=== PATIENT | female | born 2000 | race Caucasian/White ===

== ENCOUNTER 2018-07-03 13:02 | Emergency (ER) | payer BC ==
--- NOTE | 2018-07-03 13:34 | EDPHY ---
General Time Seen by Provider: 07/03/18 13:18 Narrative: CLINICAL IMPRESSION: Allergic reaction, urticaria ASSESSMENT/PLAN: Patient is a 18-year-old female with no significant medical history, who presents to the emergency department with bilateral hand pruritic rash, swelling and left lower lip swelling. The patient is well appearing, no acute distress and not toxic-appearing. She is afebrile and in no acute distress. Physical examination reveals no evidence of other angioedema; bilateral hands with no appreciable edema however maculopapular rash noticed. Her lungs were clear to auscultation without wheeze, oxygen saturation was 97% on room air without evidence of hypoxia. She was normotensive and not tachycardic. Patient has had no recent medication use, do not suspect drug reaction. Patient has had no fever or URI symptoms, there are no signs of meningismus and I do not suspect meningococcemia. There were no clinical findings to suggest anaphylaxis, SJS/TENS, varicella virus, measles, roseola, rubella or erythema infectiosum. Query mild allergic reaction, unknown precipitant. The patient was given Benadryl, Pepcid, Solu-Medrol and IV fluids in the emergency department with near resolution of her symptoms. She was observed for a period of time, on repeat examination prior to discharge her vital signs remained stable, she had complete resolution of her rash and reports she is feeling much better. She is a student at the [employer], her PCP is in [place]. I will provided local referral for her to follow up with this week. Strict return precautions discussed- patient is to return to the emergency department should for worsening rash, oral swelling, oral lesions, difficulty breathing, skin sloughing, lethargy, altered mentation or for any other concerning symptom. Mother verbalizes understanding and she is in agreement with this plan. DIFFERENTIAL DX: Differential diagnosis including but not limited to and in no particular order anaphylaxis, SJS/TENS, urticarial reaction, dermatitis, varicella, measles, mumps, rubella, erythema infectiosum ED COURSE: 1300: Case discussed with Dr. Riley. 1441: On repeat examination the patient reports she is feeling much better. She denies any sensation of lip swelling. Her rash has resolved, she reports subjective sensation of swollen hands. Her vital signs have remained within normal limits. CHIEF COMPLAINT: Bilateral hand rash, lower lip swelling HPI: Patient is a 18-year-old female with no significant medical history who presents to the Emergency Department with sudden-onset bilateral hand itching, redness, swelling and left lower lip swelling. Patient reports at approximately 10:00 a.m. This morning she felt that her hands and feet were very itchy. She noticed a rash on her hands and felt that her hands and feet looked mildly swollen. Her feet have since resolved however her hand continued to itch and she is now experiencing left lower lip swelling. She denies any new medications, she has no history of anaphylaxis or allergic reactions. She denies any new soaps, detergents, lotions or other topical products. No known food allergies. She denies any fever or recent illness. She has had no neck stiffness, chest pain or shortness of breath. She denies any throat tightness, pain or difficulty swallowing. She denies any nausea, vomiting or abdominal pain. PMH: Denies Pertinent Past Surgical History: Denies Family History: Noncontributory Social History: Occasional alcohol, denies marijuana or other illicit drug use , denies smoking REVIEW OF SYSTEMS: All other systems negative Constitutional: No fever, no chills, appetite change. Eyes: No discharge, vision change ENT: No sore throat, congestion, ear pain. Cardiovascular: No chest pain, no palpitations. Respiratory: No cough, no shortness of breath. Gastrointestinal: No abdominal pain, no vomiting, diarrhea. Genitourinary: No hematuria, dysuria, flank pain, pelvic pain Musculoskeletal: No back pain, joint swelling, joint pain, myalgias. Skin: Rash. Neurological: No headache, dizziness, weakness. PHYSICAL EXAM: General Appearance: Well-appearing, no acute distress. HENT: Normocephalic, atraumatic. Bilateral external ears are normal. Bilateral tympanic membranes are normal with pearly leal reflex. Nares are clear, mucosa is pink. There is no tonsillar enlargement or exudate. There is no appreciable facial edema, oropharynx is clear without evidence of angioedema. The posterior pharynx is clear. There is no tonsillar enlargement or exudate, no uvular enlargement. Her phonation is normal, there is no stridor. The dentition is normal. Eyes: PERRLA, no acute vision change, nystagmus, swelling, discharge, pain or photosensitivity. Conjunctiva pink, no pallor or injection. Neck: Supple, nontender, no lymphadenopathy, no midline pain, FROM, no meningismus. Respiratory: There are no retractions, lungs are clear to auscultation. Cardiac: Regular rate and rhythm, no murmurs or gallops. Gastrointestinal: Abdomen is soft, nontender, bowel sounds normal, no masses/ hernia, no rigidity, guarding or focal peritoneal findings. Neurological: Alert and oriented x 3, CN 2-12 grossly intact, normal gait no ataxia, DTR's intact, normal sensation and strength Skin: Bilateral erythematous, maculopapular rash to dorsal aspect of hands. Her skin is otherwise warm and dry. Musculoskeletal: Extremities are symmetrical, full range of motion, no tenderness, deformity, or erythema. No appreciable edema of hands or lower extremities. There is no calf tenderness. Psychiatric: Patient is oriented X 3, there is no agitation. MEDICAL DECISION MAKING: Patient was seen independently. Secondary supervising physician at time of evaluation was Dr. Riley, he did not evaluate this patient. Diagnosis: Allergic reaction, urticaria. New, requires workup Summary: See Assessment and Plan for summary of ED visit Clinical lab tests: Not applicable. Independent visualization of images, tracing, or specimens: Not applicable. Decision to obtain medical records or history from someone other than the patient: No Review / Summarize previous medical records: Yes Discussed patient with another provider: Yes, Dr. Riley Patient Progress: Stable, discharged. - History Smoking Status: Never smoked - Objective Vital Signs: Initial Vital Signs Temperature (C) 36.5 C 07/03/18 13:20 Heart Rate 88 07/03/18 13:20 Respiratory Rate 18 07/03/18 13:20 Blood Pressure 115/80 07/03/18 13:20 O2 Sat (%) 97 07/03/18 13:20 O2 Delivery Mode Room Air Allergies/Adverse Reactions: No Known Allergies Allergy (Unverified 07/03/18 13:18) Home Medications: Medication Instructions Recorded Nexplanon 07/03/18 methylPREDNISolone [Medrol Dose 1 each PO AD #1 ea 07/03/18 Lorenzo] Medications Given: Discontinued Medications Diphenhydramine HCl (Benadryl Injection) 25 mg IVP EDNOW ONE Stop: 07/03/18 13:42 Last Admin: 07/03/18 13:52 Dose: 25 mg Famotidine/Sodium Chloride (Pepcid 20 Mg (Premix)) 50 mls @ 200 mls/hr IV EDNOW ONE Stop: 07/03/18 13:56 Last Admin: 07/03/18 13:51 Dose: 50 mls Sodium Chloride (Ns) 1,000 mls @ 0 mls/hr IV ONCE ONE PRN Reason: Wide Open Stop: 07/03/18 13:43 Last Admin: 07/03/18 13:51 Dose: 1,000 mls Methylprednisolone Sodium Succinate (Solu-Medrol) 125 mg IVP EDNOW ONE Stop: 07/03/18 13:42 Last Admin: 07/03/18 13:52 Dose: 125 mg Departure - Departure Disposition: Home, Routine, Self-Care Clinical Impression: Urticaria Condition: Good Instructions: Urticaria (ED) Additional Instructions: DISCHARGE INSTRUCTIONS FROM YOUR DOCTOR Thank you for visiting our emergency department today. Please keep in mind that discharge from the emergency department does not mean that there is nothing wrong - it simply means that we have not identified an emergency condition that requires further evaluation or treatment in the hospital. You should always plan to follow up with primary care for re-evaluation of your condition in the next 2-3 days. Avoid any known allergens and exposures. Keep a diary of exposures and symptoms to determine any new allergies. Take Zyrtec 10 mg nightly. This is over the counter. Pepcid 40 mg daily. This is over the counter. Benadryl 25 mg every 4-6 hours as needed for breakthrough itching, hives and/or swelling. Medrol Dosepack (STEROID) as prescribed. More than 50% of people will notice resolution of allergy symptoms after starting this medication. BUT, over 50% of people will notice recurrence of allergy symptoms called rebound when the medication is stopped. If a steroid is taken close to allergy testing, the results will be affected. Schedule a follow-up visit with your primary care provider for re-evaluation next week. Watch closely for any signs of throat tightness and/or difficulty breathing. These symptoms can suggest a life threatening allergic reaction and require immediate attention of a medical professional. Return for recurrent facial swelling,swelling involving the mouth, lips, tongue , for difficulty breathing or swallowing, shortness of breath, wheezing,fainting , development of fever, for severe headache, neck stiffness, or for any other new, worsening, or worrisome symptoms. People present with illnesses and injuries in different ways, and it is always possible that we have missed something. You may always return for re-evaluation if symptoms worsen or if they are not improving or if you develop new/different symptoms. Again, thank you for choosing our emergency department. We hope that you feel better. Referrals: Clyde Love DO [Doctor of Osteopathy] - 1-2 days without fail Prescriptions: methylPREDNISolone [Medrol Dose Lorenzo] 1 each PO AD #1 ea
[2018-07-03] MEDS ORDERED: methylPREDNISolone SOD SUCC 125 MG/2 ML VIAL IVP ONE (13:41)
[2018-07-03] MEDS ORDERED: NS 1,000 ML IV ONE (13:42)
[2018-07-03] MEDS ORDERED: FAMOTIDINE 20 MG/NACL 50 ML IV ONE (13:42)
[2018-07-03 15:16] VITALS: BP 116/53
== END 2018-07-03 15:32 | disposition home or self-care (01) ==
DX: L50.9 Urticaria, unspecified (principal)
CPT/HCPCS: 96374; J1200; J2930